=== PATIENT | male | born 1945 | race Caucasian/White ===

== ENCOUNTER 2017-07-20 14:46 | Inpatient (IN) | payer MEDICAID, MEDICARE ==
[~2017-07-20] VITALS: Ht 193 cm; Wt 60.2 kg
[2017-07-20 16:53] VITALS: BP 102/66
[2017-07-20] MEDS ORDERED: ACETAMINOPHEN 650 MG/20.3 ML UDC PO PRN (17:00)
[2017-07-20] MEDS ORDERED: BISACODYL 10 MG SUPP PR PRN (17:00)
[2017-07-20] MEDS ORDERED: ONDANSETRON 2MG/ML, 2ML IV PRN (17:00)
[2017-07-20] MEDS ORDERED: PLEASE ENTER ALLERGIES MC SCH ×2 (17:30)
[2017-07-20] MEDS ORDERED: PLEASE ENTER PATIENTS HEIGHT MC SCH (17:30)
[2017-07-20] MEDS ORDERED: CARV3.122 PO (17:56)
[2017-07-20] MEDS ORDERED: ATOR40TA78 PO (17:56)
[2017-07-20] MEDS ORDERED: AMIO100T4 PO (17:56)
[2017-07-20] MEDS ORDERED: POTA10TA31 PO (17:56)
[2017-07-20] MEDS ORDERED: ASPI-515 PO (17:56)
[2017-07-20] MEDS ORDERED: FOLI-17 PO (17:56)
[2017-07-20] MEDS ORDERED: TIOT18CA INH (17:56)
[2017-07-20] MEDS ORDERED: CHOL200040 PO (17:56)
[2017-07-20] MEDS ORDERED: FERR324T8 PO (17:56)
[2017-07-20] MEDS ORDERED: FURO40TA6 PO (17:56)
[2017-07-20] MEDS ORDERED: RIVA20TA PO (17:56)
[2017-07-20] MEDS ORDERED: LISI5TAB7 PO (18:02)
[2017-07-20] MEDS ORDERED: SPIR25TA3 PO (18:02)
[2017-07-20 18:08] LABS: HEMATOCRIT 28.5 % (39.2-51.8); HEMOGLOBIN 9.2 g/dL (13.7-18.0); WHITE BLOOD COUNT 10.8 x10^3/uL (3.4-10)
[2017-07-20 18:20] LABS: BLOOD UREA NITROGEN 26 mg/dL (7-18)
[2017-07-20 18:21] LABS: ASPARTATE AMINO TRANSFERASE 35 U/L (15-37)
[2017-07-20 19:26] VITALS: BP 101/62
[2017-07-20] MEDS: SODIUM CHLORIDE FLUSH 10ML SYR IVF SCH (20:23)
[2017-07-20] MEDS: CARVEDILOL 3.125 MG TABLET PO SCH (20:23)
[2017-07-20] MEDS: AMIODARONE 200 MG TABLET PO SCH (20:23)
[2017-07-20] MEDS ORDERED: ZOLPIDEM 5MG TABLET PO PRN (21:00)
[2017-07-20] MEDS ORDERED: ATORVASTATIN 40 MG TABLET PO SCH (21:00)
[2017-07-21 01:55] VITALS: BP 107/57
[2017-07-21] MEDS: CARVEDILOL 3.125 MG TABLET PO SCH (05:55)
[2017-07-21] MEDS: SODIUM CHLORIDE FLUSH 10ML SYR IVF SCH (07:24)
[2017-07-21] MEDS: AMIODARONE 200 MG TABLET PO SCH (07:24)
[2017-07-21 08:07] VITALS: BP 91/56
[2017-07-21] MEDS ORDERED: SPIRONOLACTONE 25 MG TABLET PO SCH (09:00)
[2017-07-21] MEDS ORDERED: ASPIRIN 81 MG TABLET EC PO SCH (09:00)
== END 2017-07-21 14:22 | disposition home or self-care (01) | DRG 314 ==
LOC: 5SO 15:53 → DCLOUNGE 07-21 14:11
PROVIDERS: ADMIT Internal Medicine Cardiovascular Disease; ATTEND Internal Medicine Cardiovascular Disease
DX: I97.89 Other postprocedural complications and disorders of the circulatory system, not elsewhere classified (principal); E43 Unspecified severe protein-calorie malnutrition; I31.3 Pericardial effusion (noninflammatory); J90 Pleural effusion, not elsewhere classified; I48.0 Paroxysmal atrial fibrillation; D64.9 Anemia, unspecified; J44.9 Chronic obstructive pulmonary disease, unspecified; E78.5 Hyperlipidemia, unspecified; I50.9 Heart failure, unspecified; Y83.8 Other surgical procedures as the cause of abnormal reaction of the patient, or of later complication, without mention of misadventure at the time of the procedure; Z82.3 Family history of stroke; Y92.89 Other specified places as the place of occurrence of the external cause; Z87.891 Personal history of nicotine dependence; Z82.49 Family history of ischemic heart disease and other diseases of the circulatory system
CPT/HCPCS: 36415; 71020; 80053; 85025; 85610; 93005; 93306

== ENCOUNTER 2017-10-25 16:46 | Inpatient (IN) | payer MEDICARE ==
[~2017-10-25] VITALS: Ht 193 cm; Wt 77.0 kg
[~2017-10-25 16:46] MED LIST: AMIO100T4 PO; ASPI-515 PO; ATOR40TA78 PO; CARV3.122 PO; CHOL200040 PO; FERR324T8 PO; FOLI-17 PO; FURO40TA6 PO; LISI5TAB7 PO; POTA10TA31 PO; RIVA20TA PO; SPIR25TA3 PO; TIOT18CA INH
[2017-10-25] MEDS ORDERED: SODIUM CHLORIDE FLUSH 10ML SYR IVF ONE (17:00)
[2017-10-25] MEDS ORDERED: PLEASE ENTER HEIGHT AND WEIGHT MC SCH (17:00)
[2017-10-25 17:18] LABS: BASOPHILS # (AUTO) 0.02 x10^3/uL (0-0.1); BASOPHILS % (AUTO) 0 % (0-1); EOSINOPHILS # (AUTO) 0.05 x10^3/uL (0-0.4); EOSINOPHILS % (AUTO) 1 % (1-7); LYMPHOCYTES # (AUTO) 0.62 x10^3/uL (1-3.4); LYMPHOCYTES % (AUTO) 9 % (22-44); MD NO; MEAN CORPUSCULAR HEMOGLOBIN 30.8 pg (27.5-34.5); MEAN CORPUSCULAR HGB CONC 32.1 g/dL (33.2-36.2); MEAN CORPUSCULAR VOLUME 96.1 fL (81-97); MEAN PLATELET VOLUME 8.4 fL (7.4-10.4); MONOCYTES # (AUTO) 0.68 x10^3/uL (0.2-0.8); MONOCYTES % (AUTO) 9 % (2-9); NEUTROPHILS # (AUTO) 5.87 x10^3/uL (1.8-6.8); NEUTROPHILS % (AUTO) 81 % (42-75); PLATELET COUNT 173 x10^3/uL (130-400); RED BLOOD COUNT 3.55 x10^6/uL (4.38-5.82); RED CELL DISTRIBUTION WIDTH 20.2 % (9.4-14.8)
[2017-10-25 17:31] LABS: ALANINE AMINOTRANSFERASE 26 U/L (12-78); ALBUMIN 2.6 g/dL (3.4-5.0); ANION GAP 5 mmol/L (5-15); CALCIUM 8.7 mg/dL (8.5-10.1); CHLORIDE 100 mmol/L (98-107); INTERNATIONAL NORMALIZED RATIO 1.54 (0.93-1.1)
[2017-10-25 17:33] LABS: ALKALINE PHOSPHATASE 73 U/L (45-117); BILIRUBIN,TOTAL 0.7 mg/dL (0.2-1.0)
[2017-10-25 17:47] LABS: PROTHROMBIN TIME 15.9 Seconds (9.6-11.5)
[2017-10-25] MEDS ORDERED: SODIUM CHLORIDE 0.9% 1,000 ML IV ONE (17:52)
[2017-10-25] MEDS ORDERED: SODIUM CHLORIDE FLUSH 10ML SYR IVF PRN (18:00)
[2017-10-25] MEDS ORDERED: ACETAMINOPHEN 325 MG TABLET PO PRN (19:30)
[2017-10-25] MEDS ORDERED: ONDANSETRON ODT 4 MG PO PRN (19:30)
[2017-10-25] MEDS: methylPREDNISolone SOD SUCC 40 MG/ML IVPush SCH (19:30)
[2017-10-25] MEDS ORDERED: DOCUSATE 100 MG CAPSULE PO PRN (19:30)
[2017-10-25] MEDS ORDERED: hydrALAzine 20 MG/ML, 1ML IVPush PRN (19:30)
[2017-10-25] MEDS ORDERED: GUAIFENESIN/DM 200-20MG, 10ML UDC PO PRN (19:30)
[2017-10-25] MEDS ORDERED: TEMAZEPAM 15 MG CAPSULE PO PRN (19:30)
[2017-10-25] MEDS ORDERED: methylPREDNISolone SOD SUCC 40 MG/ML ONE (20:48)
[2017-10-25 21:32] VITALS: BP 93/61
[2017-10-25] MEDS ORDERED: POTASSIUM CHLORIDE 20 MEQ TAB.ER.PRT PO ONE (23:00)
[2017-10-26] MEDS: METRONIDAZOLE PMX 500MG/100ML 100 ML IV SCH ×3 (00:36→18:12)
[2017-10-26] MEDS: FUROSEMIDE 20 MG/2 ML IV SCH ×2 (00:37→10:35)
[2017-10-26] MEDS: ATORVASTATIN 40 MG TABLET PO SCH ×2 (00:37→20:35)
[2017-10-26] MEDS: methylPREDNISolone SOD SUCC 40 MG/ML IVPush SCH ×3 (02:06→20:34)
[2017-10-26 03:02] VITALS: BP 101/62
[2017-10-26] MEDS: CEFTRIAXONE PMX 1GM/50ML 50 ML IV SCH ×2 (04:28→16:33)
[2017-10-26 05:25] LABS: MEAN CORPUSCULAR HEMOGLOBIN 31.3 pg (27.5-34.5); MEAN CORPUSCULAR HGB CONC 32.8 g/dL (33.2-36.2); MEAN CORPUSCULAR VOLUME 95.4 fL (81-97); MEAN PLATELET VOLUME 8.7 fL (7.4-10.4); PLATELET COUNT 183 x10^3/uL (130-400); RED BLOOD COUNT 3.78 x10^6/uL (4.38-5.82); RED CELL DISTRIBUTION WIDTH 20.8 % (9.4-14.8)
[2017-10-26 05:31] LABS: ANION GAP 4 mmol/L (5-15); CALCIUM 8.8 mg/dL (8.5-10.1); CHLORIDE 100 mmol/L (98-107)
[2017-10-26 05:32] LABS: CREATININE 0.76 mg/dL (0.7-1.3)
[2017-10-26 05:51] LABS: BASOPHILS % (AUTO) 0 % (0-1); EOSINOPHILS % (AUTO) 0 % (1-7); LYMPHOCYTES # (AUTO) 0.28 x10^3/uL (1-3.4); LYMPHOCYTES % (AUTO) 4 % (22-44); MD SCAN; MONOCYTES # (AUTO) 0.04 x10^3/uL (0.2-0.8); MONOCYTES % (AUTO) 1 % (2-9); NEUTROPHILS # (AUTO) 6.64 x10^3/uL (1.8-6.8); NEUTROPHILS % (AUTO) 95 % (42-75)
[2017-10-26 07:34] VITALS: BP 103/66
[2017-10-26] MEDS: FERROUS GLUCONATE 324 MG TABLET PO SCH (10:36)
[2017-10-26] MEDS: AMIODARONE 200 MG TABLET PO SCH (10:36)
[2017-10-26] MEDS: CHOLECALCIFEROL 1,000 UNIT TABLET PO SCH (10:36)
[2017-10-26] MEDS: ALBUTEROL/IPRATROPIUM 2.5MG/0.5MG, 3 ML IPPB PRN (10:59)
[2017-10-26 14:58] VITALS: BP 95/59
[2017-10-26] MEDS ORDERED: LIDOCAINE 1%, 10ML ONE (15:04)
[2017-10-26 15:37] LABS: ALBUMIN 2.8 g/dL (3.4-5.0)
[2017-10-26 15:38] LABS: TOTAL PROTEIN 6.4 g/dL (6.4-8.2)
[2017-10-26] MEDS: AZITHROMYCIN 500 MG in SODIUM CHLORIDE 0.9% 250 ML IV SCH (17:10)
[2017-10-26 19:40] VITALS: BP 104/65
[2017-10-27 00:39] VITALS: BP 100/64
[2017-10-27] MEDS: METRONIDAZOLE PMX 500MG/100ML 100 ML IV SCH ×3 (02:06→18:19)
[2017-10-27] MEDS: CEFTRIAXONE PMX 1GM/50ML 50 ML IV SCH ×2 (04:25→16:22)
[2017-10-27 06:12] LABS: BASOPHILS % (AUTO) 0 % (0-1); EOSINOPHILS % (AUTO) 0 % (1-7); LYMPHOCYTES # (AUTO) 0.33 x10^3/uL (1-3.4); LYMPHOCYTES % (AUTO) 3 % (22-44); MD NO; MEAN CORPUSCULAR HEMOGLOBIN 31.4 pg (27.5-34.5); MEAN CORPUSCULAR VOLUME 95.1 fL (81-97); MEAN PLATELET VOLUME 8.5 fL (7.4-10.4); MONOCYTES # (AUTO) 0.26 x10^3/uL (0.2-0.8); MONOCYTES % (AUTO) 3 % (2-9); NEUTROPHILS # (AUTO) 9.75 x10^3/uL (1.8-6.8); NEUTROPHILS % (AUTO) 94 % (42-75); PLATELET COUNT 171 x10^3/uL (130-400); RED BLOOD COUNT 3.33 x10^6/uL (4.38-5.82); RED CELL DISTRIBUTION WIDTH 20.5 % (9.4-14.8)
[2017-10-27 06:20] LABS: ANION GAP 7 mmol/L (5-15); CALCIUM 8.5 mg/dL (8.5-10.1); CHLORIDE 97 mmol/L (98-107); CREATININE 0.99 mg/dL (0.7-1.3)
[2017-10-27 07:09] VITALS: BP 106/68
[2017-10-27] MEDS ORDERED: ENOXAPARIN 40 MG/0.4 ML SQ SCH (08:00)
[2017-10-27] MEDS: methylPREDNISolone SOD SUCC 40 MG/ML IVPush SCH (08:44)
[2017-10-27] MEDS: CHOLECALCIFEROL 1,000 UNIT TABLET PO SCH (08:45)
[2017-10-27] MEDS: AMIODARONE 200 MG TABLET PO SCH (08:45)
[2017-10-27] MEDS: FERROUS GLUCONATE 324 MG TABLET PO SCH (08:45)
[2017-10-27] MEDS: FUROSEMIDE 20 MG/2 ML IV SCH (08:45)
[2017-10-27] MEDS ORDERED: FUROSEMIDE 20 MG/2 ML IV ONE (11:30)
[2017-10-27 13:25] VITALS: BP 108/65
[2017-10-27] MEDS: AZITHROMYCIN 500 MG in SODIUM CHLORIDE 0.9% 250 ML IV SCH (17:11)
[2017-10-27 22:05] VITALS: BP 99/65
[2017-10-27] MEDS: RIVAROXABAN 20 MG TABLET PO SCH (22:06)
[2017-10-27] MEDS: ATORVASTATIN 40 MG TABLET PO SCH (22:06)
[2017-10-27] MEDS: FUROSEMIDE 40 MG/4 ML IV SCH (22:12)
[2017-10-28 01:50] VITALS: BP 101/65
[2017-10-28] MEDS: METRONIDAZOLE PMX 500MG/100ML 100 ML IV SCH ×2 (02:32→09:46)
[2017-10-28] MEDS ORDERED: CEFTRIAXONE 1,000 MG in DEXTROSE 5% 50 ML IV SCH (04:00)
[2017-10-28 06:11] LABS: BASOPHILS % (AUTO) 0 % (0-1); EOSINOPHILS % (AUTO) 0 % (1-7); LYMPHOCYTES # (AUTO) 0.34 x10^3/uL (1-3.4); LYMPHOCYTES % (AUTO) 3 % (22-44); MD NO; MEAN CORPUSCULAR HEMOGLOBIN 31.2 pg (27.5-34.5); MEAN CORPUSCULAR HGB CONC 32.7 g/dL (33.2-36.2); MEAN CORPUSCULAR VOLUME 95.4 fL (81-97); MEAN PLATELET VOLUME 8.4 fL (7.4-10.4); MONOCYTES # (AUTO) 0.41 x10^3/uL (0.2-0.8); MONOCYTES % (AUTO) 3 % (2-9); NEUTROPHILS # (AUTO) 11.54 x10^3/uL (1.8-6.8); NEUTROPHILS % (AUTO) 94 % (42-75); PLATELET COUNT 190 x10^3/uL (130-400); RED BLOOD COUNT 3.51 x10^6/uL (4.38-5.82); RED CELL DISTRIBUTION WIDTH 21.2 % (9.4-14.8)
[2017-10-28 06:22] LABS: CHLORIDE 97 mmol/L (98-107); CREATININE 0.95 mg/dL (0.7-1.3)
[2017-10-28 06:24] LABS: ANION GAP 7 mmol/L (5-15); CALCIUM 8.6 mg/dL (8.5-10.1)
[2017-10-28 09:22] VITALS: BP 102/66
[2017-10-28] MEDS: FUROSEMIDE 40 MG/4 ML IV SCH (09:45)
[2017-10-28] MEDS: AMIODARONE 200 MG TABLET PO SCH (09:46)
[2017-10-28] MEDS: CHOLECALCIFEROL 1,000 UNIT TABLET PO SCH (09:46)
[2017-10-28] MEDS: FERROUS GLUCONATE 324 MG TABLET PO SCH (12:23)
[2017-10-28 14:04] VITALS: BP 106/64
[2017-10-28] MEDS ORDERED: FUROSEMIDE 40 MG/4 ML IV SCH (21:00)
[2017-10-28 21:17] VITALS: BP 123/75
[2017-10-28] MEDS: ATORVASTATIN 40 MG TABLET PO SCH (21:20)
[2017-10-28] MEDS: RIVAROXABAN 20 MG TABLET PO SCH (21:20)
[2017-10-29 00:39] VITALS: BP 110/64
[2017-10-29 05:41] LABS: ANION GAP 5 mmol/L (5-15); CALCIUM 8.4 mg/dL (8.5-10.1); CHLORIDE 97 mmol/L (98-107)
[2017-10-29 05:42] LABS: CREATININE 0.87 mg/dL (0.7-1.3)
[2017-10-29 05:52] LABS: MEAN CORPUSCULAR HEMOGLOBIN 31.2 pg (27.5-34.5); MEAN CORPUSCULAR HGB CONC 32.8 g/dL (33.2-36.2); MEAN CORPUSCULAR VOLUME 95.1 fL (81-97); MEAN PLATELET VOLUME 8.5 fL (7.4-10.4); PLATELET COUNT 171 x10^3/uL (130-400); RED BLOOD COUNT 3.37 x10^6/uL (4.38-5.82); RED CELL DISTRIBUTION WIDTH 20.5 % (9.4-14.8)
[2017-10-29 06:34] LABS: BASOPHILS % (AUTO) 0 % (0-1); EOSINOPHILS % (AUTO) 0 % (1-7); LYMPHOCYTES # (AUTO) 0.32 x10^3/uL (1-3.4); LYMPHOCYTES % (AUTO) 3 % (22-44); MD MORPH REVIEW ONLY; MONOCYTES # (AUTO) 0.35 x10^3/uL (0.2-0.8); MONOCYTES % (AUTO) 4 % (2-9); NEUTROPHILS # (AUTO) 9.35 x10^3/uL (1.8-6.8); NEUTROPHILS % (AUTO) 93 % (42-75)
[2017-10-29 06:40] LABS: <PLATELET ESTIMATE> ADEQUATE; ACANTHOCYTES 1+; ANISOCYTOSIS 2+; HYPOCHROMIA 1+; MICROCYTOSIS 1+; OVALOCYTES 1+; SCHISTOCYTES 1+
[2017-10-29 06:41] LABS: <PLT MORPHOLOGY> NORMAL PLT MORPH
[2017-10-29] MEDS: FUROSEMIDE 20 MG/2 ML IV SCH ×2 (08:09→16:53)
[2017-10-29] MEDS: CHOLECALCIFEROL 1,000 UNIT TABLET PO SCH (08:09)
[2017-10-29] MEDS: AMIODARONE 200 MG TABLET PO SCH (08:09)
[2017-10-29] MEDS: FERROUS GLUCONATE 324 MG TABLET PO SCH (08:09)
[2017-10-29 08:11] VITALS: BP 115/68
[2017-10-29] MEDS: ALBUTEROL/IPRATROPIUM 2.5MG/0.5MG, 3 ML IPPB PRN (10:29)
[2017-10-29 12:51] VITALS: BP 99/64
[2017-10-29] MEDS: FLUTICASONE/VILANTEROL 200-25MCG/INH INH SCH (14:30)
[2017-10-29 18:47] VITALS: BP 113/72
[2017-10-29] MEDS: ATORVASTATIN 40 MG TABLET PO SCH (21:00)
[2017-10-29] MEDS: RIVAROXABAN 20 MG TABLET PO SCH (21:18)
[2017-10-30 01:24] VITALS: BP 112/71
[2017-10-30 07:09] VITALS: BP 116/76
[2017-10-30] MEDS: AMIODARONE 200 MG TABLET PO SCH (08:06)
[2017-10-30] MEDS: FUROSEMIDE 20 MG/2 ML IV SCH ×2 (08:06→16:21)
[2017-10-30] MEDS: FLUTICASONE/VILANTEROL 200-25MCG/INH INH SCH (08:07)
[2017-10-30] MEDS: CHOLECALCIFEROL 1,000 UNIT TABLET PO SCH (08:07)
[2017-10-30] MEDS: FERROUS GLUCONATE 324 MG TABLET PO SCH (08:07)
[2017-10-30 13:15] VITALS: BP 109/57
[2017-10-30] MEDS: ALBUTEROL/IPRATROPIUM 2.5MG/0.5MG, 3 ML IPPB PRN (14:34)
[2017-10-30] MEDS ORDERED: OMNIPAQUE 350 MG/ML, 75ML BOTTLE ONE (18:17)
[2017-10-30 19:20] VITALS: BP 105/67
[2017-10-30] MEDS: ATORVASTATIN 40 MG TABLET PO SCH (20:40)
[2017-10-30] MEDS: RIVAROXABAN 20 MG TABLET PO SCH (20:40)
[2017-10-31 02:13] VITALS: BP 123/77
[2017-10-31 08:36] VITALS: BP 112/72
[2017-10-31] MEDS: AMIODARONE 200 MG TABLET PO SCH (08:40)
[2017-10-31] MEDS: CHOLECALCIFEROL 1,000 UNIT TABLET PO SCH (08:40)
[2017-10-31] MEDS: FLUTICASONE/VILANTEROL 200-25MCG/INH INH SCH (08:40)
[2017-10-31] MEDS: FUROSEMIDE 20 MG/2 ML IV SCH ×2 (08:40→16:54)
[2017-10-31] MEDS: FERROUS GLUCONATE 324 MG TABLET PO SCH (08:40)
[2017-10-31 11:14] LABS: ANION GAP 5 mmol/L (5-15); CALCIUM 8.4 mg/dL (8.5-10.1); CHLORIDE 96 mmol/L (98-107); CREATININE 0.83 mg/dL (0.7-1.3)
[2017-10-31 15:15] VITALS: BP 101/63
[2017-10-31] MEDS ORDERED: AMIO200T42 PO (16:33)
[2017-10-31] MEDS ORDERED: FLUT1BLS INH (16:33)
[2017-10-31] MEDS ORDERED: FURO40TA6 PO (16:33)
[2017-10-31] MEDS ORDERED: DOCU-131 PO (16:33)
[2017-10-31] MEDS ORDERED: PRED5TAB PO (16:33)
== END 2017-10-31 18:10 | disposition home or self-care (01) | DRG 291 ==
LOC: ED 17:51 → EDIP 17:52 → ED 18:25 → 4NOR 20:55
PROVIDERS: ADMIT Internal Medicine; ATTEND Internal Medicine
PROC: 0W993ZZ Drainage of Right Pleural Cavity, Percutaneous Approach (ICD-10-PCS; principal; 2017-10-26)
DX: I13.0 Hypertensive heart and chronic kidney disease with heart failure and stage 1 through stage 4 chronic kidney disease, or unspecified chronic kidney disease (principal); J15.9 Unspecified bacterial pneumonia; J96.21 Acute and chronic respiratory failure with hypoxia; E43 Unspecified severe protein-calorie malnutrition; D68.59 Other primary thrombophilia; I27.20 Pulmonary hypertension, unspecified; J90 Pleural effusion, not elsewhere classified; I48.0 Paroxysmal atrial fibrillation; I50.43 Acute on chronic combined systolic (congestive) and diastolic (congestive) heart failure; J44.0 Chronic obstructive pulmonary disease with (acute) lower respiratory infection; Z99.81 Dependence on supplemental oxygen; D64.9 Anemia, unspecified; I34.0 Nonrheumatic mitral (valve) insufficiency; Z91.013 Allergy to seafood; Z68.20 Body mass index [BMI] 20.0-20.9, adult; E78.5 Hyperlipidemia, unspecified; I25.10 Atherosclerotic heart disease of native coronary artery without angina pectoris; I34.1 Nonrheumatic mitral (valve) prolapse; N18.3 Chronic kidney disease, stage 3 (moderate); Z79.01 Long term (current) use of anticoagulants; Z87.891 Personal history of nicotine dependence
CPT/HCPCS: 32555; 36415; 71045; 71260; 80048; 80053; 82040; 82945; 83605; 83615; 83735; 83880; 83986; 84145; 84155; 84157; 85025; 85610; 85730; 87040; 87070; 87075; 87205; 88112; 89051; 93005; 93306; 94640; 99285; J0456; J0696; J1650; J1940; J3490; J7620; Q9967; J2920; J7030; J7050; J7512